=== PATIENT | female | born 1975 | race African-American/Black ===

== ENCOUNTER 2016-12-05 22:33 | Emergency (ER) | payer OTHER ==
[~2016-12-05] VITALS: Ht 149.9 cm; Wt 73.5 kg
[2016-12-05 23:01] LABS: ABSOLUTE BASOPHIL COUNT 0 /CUMM (0.0-0.2); ABSOLUTE EOSINOPHIL COUNT 0 /CUMM (0.0-0.7); ABSOLUTE GRANULOCYTE CT 4.2 /CUMM (1.4-6.5); ABSOLUTE LYMPH COUNT 1.4 /CUMM (1.2-3.4); ABSOLUTE MONOCYTE COUNT 0.3 /CUMM (0.10-0.60); BASOPHIL % 0.4 % (0.0-2.0); EOSINOPHIL % 0.3 % (0-5); GRANULOCYTE % 70.6 % (42.2-75.2); HEMATOCRIT 40.2 % (37-47); MEAN CORPUSCULAR HGB 31.3 PG (27.0-31.0); MEAN CORPUSCULAR HGB CONC 33.9 G/DL (33.0-37.0); MEAN CORPUSCULAR VOLUME 92.2 FL (81.0-99.0); PLATELET COUNT 219 /CUMM (130-400); RBC DISTRIBUTION WIDTH 13.7 % (11.5-14.5); RED BLOOD CELL CT 4.36 /CUMM (4.20-5.40); WHITE BLOOD CELL COUNT 5.9 /CUMM (4.8-10.8)
--- NOTE | 2016-12-06 00:12 | ED GI/GU/ABDOMINAL COMPLAINT ---
History of Present Illness General Chief Complaint: Abdominal Pain/Flank Pain Stated Complaint: ABD. PAIN,VOMITING,WEAKNESS Source: patient, family Exam Limitations: no limitations Vital Signs & Intake/Output Vital Signs & Intake/Output Vital Signs Date Time Temp Pulse Resp B/P Pulse O2 O2 Flow FiO2 Ox Delivery Rate 12/06 0024 Room Air 12/05 2238 96.7 93 18 117/75 100 Room Air ED Intake and Output 12/06 0000 12/05 1200 Intake Total Output Total Balance Patient 162 lb Weight Allergies Coded Allergies: No Known Allergies (12/05/16) Triage Note: PT TO ED FOR ABD PAIN, FATIGUE AND WEAKNESS, REPORTING SHE HAS A HX OF CHRONIC ANEMIA WHICH HAS REQUIRED MULTIPLE EPISODES OF TRANSFUSIONS - REPORTING S/S ARE SIMILAR TO THAT. DENIES ANY BLACK OR TARRY STOOLS, DENIES ANY BLOOD VOMIT. Triage Nurses Notes Reviewed? yes ? N Is pt currently ? No HPI: Patient presents with nausea and vomiting and crampy abdominal pain. Patient states she also feels weak. Symptoms have been going on for the past day and a half. Crampy abdominal pain is periumbilical. Patient denies any radiation. There are no aggravating or mitigating factors. Patient states the pain is 4 out of 10. Patient denies any diarrhea. Patient denies any fevers or chills. There is no radiation of the pain. Past History Travel History Traveled to [place] past 21 day No Medical History Any Pertinent Medical History? 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 No Review of Systems Review of Systems Constitutional: Reports: see HPI, weakness. EENTM: Reports: no symptoms. Respiratory: Reports: no symptoms. Cardiovascular: Reports: no symptoms. GI: Reports: see HPI, abdominal pain, nausea, vomiting. Genitourinary: Reports: no symptoms. Musculoskeletal: Reports: no symptoms. Skin: Reports: no symptoms. Neurological/Psychological: Reports: no symptoms. Hematologic/Endocrine: Reports: no symptoms. Immunologic/Allergic: Reports: no symptoms. All Other Systems: Reviewed and Negative Physical Exam Physical Exam General Appearance: well developed/nourished, alert, awake, mild distress Head: atraumatic, normal appearance Eyes: Bilateral: PERRL, EOMI, other (ANICTERIC). Ears, Nose, Throat, Mouth: hearing grossly normal, DRY MUCOUS MEMBRANES Neck: normal inspection, supple, full range of motion Respiratory: normal breath sounds, chest non-tender, no respiratory distress, lungs clear Cardiovascular: regular rate/rhythm, normal peripheral pulses Gastrointestinal: normal bowel sounds, soft, no organomegaly, TENDERNESS PERIUMBILICALLY WELL RIGHT LOWER AND LEFT LOWER QUADRANT NO REBOUND OR GUARDING. Back: normal inspection, normal range of motion, NO cva TENDERNESS Extremities: normal range of motion Neurologic/Psych: no motor/sensory deficits, awake, alert, oriented x 3, normal mood/affect Skin: intact, normal color, warm/dry Core Measures ACS in differential dx? No Severe Sepsis Present: No Septic Shock Present: No Progress Differential Diagnosis: appendicitis, cholecystitis, diverticulitis, ectopic , gastritis, hepatitis, ischemic bowel, inflamm bowel dis, intrauterine , pancreatitis, peptic ulcer, PUD/GERD, SBO, threatened AB Plan of Care: Orders Procedure Date/time Status Add-on Test (ER Only) 12/05 2325 Active HUMAN BETA HCG SCREEN 12/05 224 Complete COMPREHENSIVE METABOLIC PANEL 12/05 224 Complete CBC WITHOUT DIFFERENTIAL 12/05 2239 Complete TYPE & SCREEN (NOT X-MATCH) 12/05 2240 Active Laboratory Tests 12/05/16 2246: Anion Gap 10, Estimated GFR > 60, BUN/Creatinine Ratio 10.0, Glucose 122 H, Calcium 9.0, Total Bilirubin 0.5, AST 20, ALT 29, Alkaline Phosphatase 75, Total Protein 7.8, Albumin 4.2, Globulin 3.6, Albumin/Globulin Ratio 1.2, Total Beta HCG NEGATIVE, CBC w Diff NO MAN DIFF REQ, RBC 4.36, MCV 92.2, MCH 31.3 H, RDW 13.7, MPV 9.0, Gran % 70.6, Lymphocytes % 23.7, Monocytes % 5.0, Eosinophils % 0.3, Basophils % 0.4, Absolute Granulocytes 4.2, Absolute Lymphocytes 1.4, Absolute Monocytes 0.3, Absolute Eosinophils 0, Absolute Basophils 0, PUBS MCHC 33.9 Diagnostic Imaging: Viewed by Me: CT Scan. Discussed w/RAD: CT Scan. Radiology Impression: PATIENT: MARK CORRALES PRESENT AGE: 41 PATIENT ACCOUNT NO: [id number] : 74 LOCATION: [facility] ORDERING PHYSICIAN: ZAC KANG MD SERVICE DATE: 12/06/16 EXAM TYPE: CAT - CT ABD & PELVIS W IV CONTRAST EXAMINATION: CT ABDOMEN AND PELVIS WITH CONTRAST CLINICAL INFORMATION: Right lower quadrant pain COMPARISON: None TECHNIQUE: Multidetector volumetric imaging was performed of the abdomen and pelvis before and after the IV administration of 94 mL of Optiray 320 intravenous contrast. Sagittal and coronal reformatted images were obtained on the technologist's workstation. DLP: 521 mGy-cm FINDINGS: LUNG BASES: The visualized lung bases are unremarkable. LIVER, GALLBLADDER, AND BILIARY TREE: The liver is normal in size, shape, and attenuation. No focal hepatic lesion or biliary ductal dilatation is present. The gallbladder is unremarkable with no evidence of radiopaque gallstones, gallbladder wall thickening, or obvious pericholecystic inflammatory changes. PANCREAS: Unremarkable. SPLEEN: Unremarkable. ADRENAL GLANDS: Unremarkable. KIDNEYS AND URETERS: The kidneys are normal in size, shape, and attenuation. No hydronephrosis, hydroureter, or obstructing calculi seen. No perinephric stranding. BLADDER: Unremarkable. GASTROINTESTINAL TRACT: A small hiatal hernia is noted. Colonic diverticulosis is noted. The small and large bowel are otherwise unremarkable without evidence of obstruction or pericolonic inflammatory change. The appendix is unremarkable. ABDOMINAL WALL: No significant hernia is appreciated. LYMPH NODES: Normal. VASCULAR: Unremarkable. PELVIC VISCERA: An IUD is present in the uterus. OSSEOUS STRUCTURES: Unremarkable. IMPRESSION: 1. No acute findings identified. Normal appendix. 2. Small hiatal hernia. 3. Colonic diverticulosis. DICTATED BY: LAKIA PINEDA MD DATE/TIME DICTATED:12/06/16111 WATER QUALITY TECHNICIAN:PERLITA DATE/TIME TRANSCRIBED:12/06/16111 CONFIDENTIAL, DO NOT COPY WITHOUT APPROPRIATE AUTHORIZATION. <Electronically signed in Other Vendor System> SIGNED BY: LAKIA PINEDA MD 12/06/16 0137 Initial ED EKG: none Departure Departure Disposition: HOME OR SELF CARE Condition: Stable Clinical Impression Primary Impression: Lower abdominal pain, unspecified Referrals: AARON ROSALES (PCP/Family) Additional Instructions: REUTRN IF SYMPTOMS WORSEN OR FOR ANY CONCERNS Departure Forms: Customer Survey General Discharge Information
--- NOTE | 2016-12-06 01:37 | CT SCAN REPORT ---
EXAMINATION: CT ABDOMEN AND PELVIS WITH CONTRAST CLINICAL INFORMATION: Right lower quadrant pain COMPARISON: None TECHNIQUE: Multidetector volumetric imaging was performed of the abdomen and pelvis before and after the IV administration of 94 mL of Optiray 320 intravenous contrast. Sagittal and coronal reformatted images were obtained on the technologist's workstation. DLP: 521 mGy-cm FINDINGS: LUNG BASES: The visualized lung bases are unremarkable. LIVER, GALLBLADDER, AND BILIARY TREE: The liver is normal in size, shape, and attenuation. No focal hepatic lesion or biliary ductal dilatation is present. The gallbladder is unremarkable with no evidence of radiopaque gallstones, gallbladder wall thickening, or obvious pericholecystic inflammatory changes. PANCREAS: Unremarkable. SPLEEN: Unremarkable. ADRENAL GLANDS: Unremarkable. KIDNEYS AND URETERS: The kidneys are normal in size, shape, and attenuation. No hydronephrosis, hydroureter, or obstructing calculi seen. No perinephric stranding. BLADDER: Unremarkable. GASTROINTESTINAL TRACT: A small hiatal hernia is noted. Colonic diverticulosis is noted. The small and large bowel are otherwise unremarkable without evidence of obstruction or pericolonic inflammatory change. The appendix is unremarkable. ABDOMINAL WALL: No significant hernia is appreciated. LYMPH NODES: Normal. VASCULAR: Unremarkable. PELVIC VISCERA: An IUD is present in the uterus. OSSEOUS STRUCTURES: Unremarkable. IMPRESSION: 1. No acute findings identified. Normal appendix. 2. Small hiatal hernia. 3. Colonic diverticulosis.
[2016-12-06 02:12] VITALS: BP 93/54
== END 2016-12-06 02:13 ==
LOC: ERH 22:33
PROVIDERS: Emergency Medicine
DX: R10.33 Periumbilical pain (principal)
CPT/HCPCS: 74177; 96361; 96374; 96375; J1885; J2405

== ENCOUNTER 2017-01-29 05:08 | Emergency (ER) | payer OTHER ==
[~2017-01-29] VITALS: Ht 149.9 cm; Wt 90.7 kg
[2017-01-29 05:34] VITALS: BP 116/67
--- NOTE | 2017-01-29 05:51 | ED GI/GU/ABDOMINAL COMPLAINT ---
History of Present Illness General Chief Complaint: Nausea, Vomiting, Diarrhea Stated Complaint: VOMITING Source: patient, family, old records Exam Limitations: no limitations Vital Signs & Intake/Output Vital Signs & Intake/Output Vital Signs Date Time Temp Pulse Resp B/P Pulse O2 O2 Flow FiO2 Ox Delivery Rate 01/29 0608 Room Air 01/29 0534 98.1 84 18 116/67 98 Room Air Allergies Coded Allergies: No Known Allergies (12/05/16) Reconcile Medications Hyoscyamine Sulfate (Levsin-Sl) 0.125 MG TAB.SUBL 1-2 TAB SL Q4P PRN abdominal pain Metoclopramide HCl (Reglan) 10 MG TABLET 1 TAB PO 4 TIMES/DAY hiatal hernia 30 minutes before meals and bedtime Ondansetron (Zofran Odt) 4 MG TAB.RAPDIS 1 TAB SL TID PRN nausea Triage Note: PT TO ED ACCOMPANIED BY DAUGHTER. PT C/O FEELING TIRED AND WEAK. PT STATES SHE WAS SEEN HERE FOR THE SAME THING A MONTH AGO AND HAS STILL FELT THE SAME WAY. PT HAS HX OF ANEMIA, RECIEVED LAST TRANSFUSION ONE YEAR AGO, WAS SUPPOSED TO GO HAVE BLOOD CHECKED 3-4 MONTHS AGO BUT NEVER DID. PT STATES "I FEEL LIKE MY IRON IS LOW". Triage Nurses Notes Reviewed? yes LMP (ages 10-50): unknown ? n Is pt currently ? No Onset: 1 month Duration: week(s):, continues in ED, intermittent Timing: recent history Quality/Severity: aching, cramping, moderate Location: periumbilical Radiation: epigastric Activities at Onset: eating Prior Abdominal Problems: similar symptoms Past Sexual History: Unobtainable at this time Modifying Factors: Worsens With: eating. Associated Symptoms: abdominal pain, diarrhea, loss of appetite, nausea/vomiting HPI: 1 month prior to admission patient complains of periumbilical pain described as crampy radiating to epigastric mild to moderate associated with nausea vomiting diarrhea anorexia. She was seen in the ED with normal labs and CT with hiatal hernia. She denies fever chills chest pain cough shortness of breath headache dysuria rash bleeding . Past History Travel History Traveled to [place] past 21 day No Medical History Any Pertinent Medical History? 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 No Review of Systems Review of Systems Constitutional: Reports: see HPI, malaise. EENTM: Reports: no symptoms. Respiratory: Reports: no symptoms. Cardiovascular: Reports: no symptoms. GI: Reports: see HPI, abdominal pain, diarrhea, nausea, vomiting. Genitourinary: Reports: no symptoms. Musculoskeletal: Reports: no symptoms. Skin: Reports: no symptoms. Neurological/Psychological: Reports: no symptoms. Hematologic/Endocrine: Reports: no symptoms. Immunologic/Allergic: Reports: no symptoms. All Other Systems: Reviewed and Negative Physical Exam Physical Exam General Appearance: well developed/nourished, alert, awake, anxious, mild distress, obese Head: atraumatic, normal appearance Eyes: Bilateral: normal appearance, PERRL, EOMI, normal inspection. Ears, Nose, Throat, Mouth: hearing grossly normal, moist mucous membrane Neck: normal inspection, supple, full range of motion, normal alignment Respiratory: normal breath sounds, chest non-tender, no respiratory distress, quiet respiration, lungs clear Cardiovascular: regular rate/rhythm, normal peripheral pulses, norml femoral pulses equa Peripheral Pulses: 4+ carotid (R), 4+ carotid (L) Gastrointestinal: normal bowel sounds, soft, non-tender, no organomegaly Back: normal inspection, normal range of motion Extremities: normal range of motion, pelvis stable, no ligament instability Neurologic/Psych: no motor/sensory deficits, awake, alert, oriented x 3 Skin: intact, normal color, warm/dry Core Measures ACS in differential dx? No Severe Sepsis Present: No Septic Shock Present: No Progress Differential Diagnosis: biliary colic, gastritis, hernia, pancreatitis, PUD/GERD Plan of Care: Current Medications Sig/Stephanie Start time Last Medication Dose Stop Time Status Admin Hyoscyamine 0.125 MG ONCE ONE 01/29 600 UNVr (Levsin) 01/29 601 Ondansetron HCl 4 MG ONCE ONE 01/29 600 UNVr (Zofran) 01/29 601 Initial ED EKG: none Departure Departure Time of Disposition: 0550 Disposition: HOME OR SELF CARE Condition: Stable Clinical Impression Primary Impression: Hiatal hernia Referrals: AARON ROSALES (PCP/Family) KENNY ACUÑA,GRACE Odom Call for GI follow up Departure Forms: Customer Survey General Discharge Information Prescriptions: Current Visit Scripts Ondansetron (Zofran Odt) 1 TAB SL TID PRN nausea #15 TAB Hyoscyamine Sulfate (Levsin-Sl) 1-2 TAB SL Q4P PRN abdominal pain #30 TAB Metoclopramide HCl (Reglan) 1 TAB PO 4 TIMES/DAY #30 TAB 30 minutes before meals and bedtime
[2017-01-29] MEDS ORDERED: ZOFRAN ODT4 M1 SL (05:52)
[2017-01-29] MEDS ORDERED: REGLAN10 M1 PO (05:52)
[2017-01-29] MEDS ORDERED: LEVSIN-SL0.125 MG SL (05:52)
== END 2017-01-29 06:22 ==
LOC: ERH 05:08
DX: K44.9 Diaphragmatic hernia without obstruction or gangrene (principal)
CPT/HCPCS: J3101

== ENCOUNTER 2017-04-11 21:47 | Emergency (ER) | payer OTHER ==
[~2017-04-11 21:47] MED LIST: LEVSIN-SL0.125 MG SL; REGLAN10 M1 PO; ZOFRAN ODT4 M1 SL
[2017-04-11 22:23] LABS: ABSOLUTE BASOPHIL COUNT 0 /CUMM (0.0-0.2); ABSOLUTE EOSINOPHIL COUNT 0 /CUMM (0.0-0.7); ABSOLUTE GRANULOCYTE CT 2.9 /CUMM (1.4-6.5); ABSOLUTE LYMPH COUNT 1.6 /CUMM (1.2-3.4); ABSOLUTE MONOCYTE COUNT 0.3 /CUMM (0.10-0.60); BASOPHIL % 0.5 % (0.0-2.0); EOSINOPHIL % 0.2 % (0-5); GRANULOCYTE % 59.9 % (42.2-75.2); HEMATOCRIT 40.5 % (37-47); MEAN CORPUSCULAR HGB 31.1 PG (27.0-31.0); MEAN CORPUSCULAR HGB CONC 33.7 G/DL (33.0-37.0); MEAN CORPUSCULAR VOLUME 92.4 FL (81.0-99.0); MEAN PLATELET VOLUME 9.6 FL (7.4-10.4); RBC DISTRIBUTION WIDTH 13.9 % (11.5-14.5); RED BLOOD CELL CT 4.38 /CUMM (4.20-5.40); WHITE BLOOD CELL COUNT 4.9 /CUMM (4.8-10.8)
[2017-04-11 22:41] LABS: PLATELET COUNT 191 /CUMM (130-400)
--- NOTE | 2017-04-11 23:01 | ED GI/GU/ABDOMINAL COMPLAINT ---
History of Present Illness General Chief Complaint: General Adult Stated Complaint: WEAKNESS,BLOOD IN STOOL Source: patient, family, old records Exam Limitations: no limitations Vital Signs & Intake/Output Vital Signs & Intake/Output Vital Signs Date Time Temp Pulse Resp B/P B/P Pulse O2 O2 Flow FiO2 Mean Ox Delivery Rate 04/11 2151 97.5 98 16 120/78 98 Room Air ED Intake and Output 04/12 0000 04/11 1200 Intake Total Output Total Balance Patient 169 lb Weight Weight Reported by Patient Measurement Method Allergies Coded Allergies: No Known Allergies (12/05/16) Reconcile Medications Omeprazole 40 MG CAPSULE. 1 CAP PO DAILY GASTRITIS Triage Note: TRIAGE: C/O FEELING SHAKY X2-3 DAYS WITH GI UPSET. REPORTS SEEING "A LITTLE RED" IN HER BM APPROX 30 MINS AGO. REPORTS UMBILICAL PAIN 8/10 WITH HX HIATAL HERNIA. ALSO REPORTS HX ANEMIA WITH BLOOD TRANSFUSIONS. AAOX4 ON ARRIVAL, NEUROS INTACT. SLIGHT HEADACHE. VSS, AFEBRILE. Triage Nurses Notes Reviewed? yes ? N Is pt currently ? No HPI: Patient presents with a burning sensation to her epigastric area since earlier this afternoon. The pain is constant. Slight nausea but no vomiting. Patient states that she did move her bowels and it was normal in texture however she thought she saw a little bit of bright red blood on the stool earlier this evening. Patient states that she just hasn't been feeling right for the past few days. There are no fevers or chills. She rates the burning sensation at 5 out of 10. There is no aggravating or mitigating factors. There is no radiation. The pain is constant. Past History Travel History Traveled to [place] past 21 day No Medical History Any Pertinent Medical History? 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 No Review of Systems Review of Systems Constitutional: Reports: no symptoms. EENTM: Reports: no symptoms. Respiratory: Reports: no symptoms. Cardiovascular: Reports: no symptoms. GI: Reports: see HPI, abdominal pain. Genitourinary: Reports: no symptoms. Musculoskeletal: Reports: no symptoms. Skin: Reports: no symptoms. Neurological/Psychological: Reports: no symptoms. Hematologic/Endocrine: Reports: no symptoms. Immunologic/Allergic: Reports: no symptoms. All Other Systems: Reviewed and Negative Physical Exam Physical Exam General Appearance: well developed/nourished, alert, awake, mild distress Head: atraumatic, normal appearance Eyes: Bilateral: PERRL, EOMI, other (ANICTERIC). Ears, Nose, Throat, Mouth: hearing grossly normal, DRY MUCOSA Neck: normal inspection, supple, full range of motion Respiratory: normal breath sounds, chest non-tender, no respiratory distress, lungs clear Cardiovascular: regular rate/rhythm, normal peripheral pulses Gastrointestinal: normal bowel sounds, soft, non-tender, no organomegaly, NO REBOUND OR GUARDING Back: normal inspection, normal range of motion Extremities: normal range of motion Neurologic/Psych: no motor/sensory deficits, awake, alert, oriented x 3, normal gait, normal mood/affect Skin: intact, normal color, warm/dry Core Measures ACS in differential dx? No Severe Sepsis Present: No Septic Shock Present: No Progress Differential Diagnosis: biliary colic, colon cancer, cholecystitis, gastritis, hepatitis, ischemic bowel, inflamm bowel dis, pancreatitis, peptic ulcer, PUD/ GERD Plan of Care: Orders Procedure Date/time Status LIPASE 04/11 2155 Complete COMPREHENSIVE METABOLIC PANEL 04/11 2155 Complete CBC WITHOUT DIFFERENTIAL 04/11 2155 Complete Laboratory Tests 04/11/17 2210: Anion Gap 10, Estimated GFR > 60, BUN/Creatinine Ratio 7.0, Glucose 125 H, Calcium 9.8, Total Bilirubin 0.4, AST 18, ALT 21, Alkaline Phosphatase 65, Total Protein 8.0, Albumin 4.6, Globulin 3.4, Albumin/Globulin Ratio 1.4, Lipase 74, CBC w Diff NO MAN DIFF REQ, RBC 4.38, MCV 92.4, MCH 31.1 H, RDW 13.9, MPV 9.6, Gran % 59.9, Lymphocytes % 33.2, Monocytes % 6.2, Eosinophils % 0.2, Basophils % 0.5, Absolute Granulocytes 2.9, Absolute Lymphocytes 1.6, Absolute Monocytes 0.3 , Absolute Eosinophils 0, Absolute Basophils 0, PUBS MCHC 33.7 Diagnostic Imaging: Viewed by Me: CT Scan. Discussed w/RAD: CT Scan. Radiology Impression: PATIENT: MARK CORRALES PRESENT AGE: 41 PATIENT ACCOUNT NO: [id number] : 74 LOCATION: [facility] ORDERING PHYSICIAN: ZAC KANG MD SERVICE DATE: 04/11/17 EXAM TYPE: CAT - CT ABD & PELVIS W IV CONTRAST EXAMINATION: CT ABDOMEN AND PELVIS WITH CONTRAST CLINICAL INFORMATION: Left lower quadrant pain COMPARISON: None TECHNIQUE: Multidetector volumetric imaging was performed of the abdomen and pelvis before and after the IV administration of 95 mL of Optiray 320 intravenous contrast. Sagittal and coronal reformatted images were obtained on the technologist's workstation. DLP: 464.14 mGy-cm FINDINGS: LUNG BASES: The visualized lung bases are unremarkable. LIVER, GALLBLADDER, AND BILIARY TREE: The liver is normal in size, shape, and attenuation. No focal hepatic lesion or biliary ductal dilatation is present. The gallbladder is unremarkable with no evidence of radiopaque gallstones, gallbladder wall thickening, or obvious pericholecystic inflammatory changes. PANCREAS: Unremarkable. SPLEEN: Unremarkable. ADRENAL GLANDS: Unremarkable. KIDNEYS AND URETERS: The kidneys are normal in size, shape, and attenuation. No hydronephrosis, hydroureter, or calculi seen. No perinephric stranding. BLADDER: Unremarkable. GASTROINTESTINAL TRACT: There is colonic diverticulosis without evidence of diverticulitis. No evidence of bowel obstruction or abnormal wall thickening. The appendix is unremarkable. No free fluid or free air is seen. ABDOMINAL WALL: Rectus diastases is noted. There is a small fat-containing umbilical hernia. LYMPH NODES: Normal. VASCULAR: Unremarkable. PELVIC VISCERA: There is a left adnexal cyst measuring 4.5 x 3.5 cm, likely ovarian and new compared to prior. An IUD is present in the uterus. OSSEOUS STRUCTURES: Unremarkable. IMPRESSION: 1. Left ovarian cyst measuring 4.5 x 3.5 cm. 2. Colonic diverticulosis without diverticulitis. DICTATED BY: LAKIA PINEDA MD DATE/TIME DICTATED:04/12/17106 REDUCING SYSTEM OPERATOR:PERLITA DATE/TIME TRANSCRIBED:04/12/17106 CONFIDENTIAL, DO NOT COPY WITHOUT APPROPRIATE AUTHORIZATION. <Electronically signed in Other Vendor System> SIGNED BY: LAKIA PINEDA MD 04/12/17 0117 Initial ED EKG: none Comments: PAIN DECREASED TO 1 OUT OF 10 POST GI COCTAIL Departure Departure Disposition: HOME OR SELF CARE Condition: Stable Clinical Impression Primary Impression: Gastritis Qualifiers: Gastritis type: unspecified gastritis Chronicity: acute Gastritis bleeding: without bleeding Qualified Code: K29.00 - Acute gastritis without bleeding Referrals: AARON ROSALES (PCP/Family) Additional Instructions: RETURN IF SYMPTOMS WORSEN OR FOR ANY CONCERNS Departure Forms: Customer Survey General Discharge Information Prescriptions: Current Visit Scripts Omeprazole 1 CAP PO DAILY #30 CAP
--- NOTE | 2017-04-12 01:17 | CT SCAN REPORT ---
EXAMINATION: CT ABDOMEN AND PELVIS WITH CONTRAST CLINICAL INFORMATION: Left lower quadrant pain COMPARISON: None TECHNIQUE: Multidetector volumetric imaging was performed of the abdomen and pelvis before and after the IV administration of 95 mL of Optiray 320 intravenous contrast. Sagittal and coronal reformatted images were obtained on the technologist's workstation. DLP: 464.14 mGy-cm FINDINGS: LUNG BASES: The visualized lung bases are unremarkable. LIVER, GALLBLADDER, AND BILIARY TREE: The liver is normal in size, shape, and attenuation. No focal hepatic lesion or biliary ductal dilatation is present. The gallbladder is unremarkable with no evidence of radiopaque gallstones, gallbladder wall thickening, or obvious pericholecystic inflammatory changes. PANCREAS: Unremarkable. SPLEEN: Unremarkable. ADRENAL GLANDS: Unremarkable. KIDNEYS AND URETERS: The kidneys are normal in size, shape, and attenuation. No hydronephrosis, hydroureter, or calculi seen. No perinephric stranding. BLADDER: Unremarkable. GASTROINTESTINAL TRACT: There is colonic diverticulosis without evidence of diverticulitis. No evidence of bowel obstruction or abnormal wall thickening. The appendix is unremarkable. No free fluid or free air is seen. ABDOMINAL WALL: Rectus diastases is noted. There is a small fat-containing umbilical hernia. LYMPH NODES: Normal. VASCULAR: Unremarkable. PELVIC VISCERA: There is a left adnexal cyst measuring 4.5 x 3.5 cm, likely ovarian and new compared to prior. An IUD is present in the uterus. OSSEOUS STRUCTURES: Unremarkable. IMPRESSION: 1. Left ovarian cyst measuring 4.5 x 3.5 cm. 2. Colonic diverticulosis without diverticulitis.
[2017-04-12] MEDS ORDERED: OMEPRAZOLE40 M1 PO ×2 (01:28→01:40)
[2017-04-12 01:41] VITALS: BP 120/76
== END 2017-04-12 01:42 ==
LOC: ERH 21:47
PROVIDERS: Emergency Medicine
DX: K29.70 Gastritis, unspecified, without bleeding (principal)
CPT/HCPCS: 74177; 96361; 96374; J1885